=== PATIENT | female | born 1990 | race Caucasian/White ===

== ENCOUNTER 2018-04-15 15:58 | Emergency (ER) | payer OTHER ==
[2018-04-15] MEDS: ACETAMINOPHEN 325 MG TAB PO (16:45)
== END 2018-04-15 16:56 | disposition home or self-care (01) ==
LOC: FTE 15:58
DX: O99.89 Other specified diseases and conditions complicating pregnancy, childbirth and the puerperium (principal); M62.830 Muscle spasm of back; Z3A.28 28 weeks gestation of pregnancy
CPT/HCPCS: 99282; Z7502

== ENCOUNTER 2018-04-19 21:41 | Emergency (ER) | payer OTHER ==
[2018-04-20] MEDS ORDERED: ACETAMINOPHEN 325 MG TAB PO
== END 2018-04-20 01:33 | disposition home or self-care (01) ==
LOC: FTE 21:41
DX: O99.89 Other specified diseases and conditions complicating pregnancy, childbirth and the puerperium (principal); R07.89 Other chest pain; R40.2412 Glasgow coma scale score 13-15, at arrival to emergency department; Z3A.29 29 weeks gestation of pregnancy
CPT/HCPCS: 99282; Z7502

== ENCOUNTER 2018-06-28 08:12 | Inpatient (IN) | payer OTHER ==
[2018-06-28] MEDS ORDERED: MISOPROSTOL 200 MCG TAB PR ×2 (08:30→15:30)
[2018-06-28] MEDS ORDERED: METHYLERGONOVINE 0.2 MG INJ IM ×2 (08:30→15:30)
[2018-06-28] MEDS ORDERED: LIDOCAINE 1% (MPF) 30 ML INJ INJ (08:30)
[2018-06-28] MEDS ORDERED: CARBOPROST 250 MCG INJ IM ×2 (08:30→15:30)
[2018-06-28] MEDS ORDERED: BUTORPHANOL 1 MG INJ IV (08:30)
[2018-06-28] MEDS ORDERED: MISOPROSTOL 50 MCG CAPSULE VAG (08:30)
[2018-06-28] MEDS ORDERED: OXYTOCIN 30 UNITS/LR 500 ML IV ×5 (08:30→15:30)
[2018-06-28 08:56] LABS: ADD MAN DIFF? NO
[2018-06-28 09:01] LABS: WHITE BLOOD COUNT 7.6 10^3/ul (4.8-10.8)
[2018-06-28 09:01] LABS: BASOPHILS % 0.4 % (0.0-2.0); EOSINOPHILS # 0.1 10^3/ul (0.0-0.5); EOSINOPHILS % 0.7 % (0.0-7.0); HEMATOCRIT 38.2 % (37.0-47.0); HEMOGLOBIN 12.3 g/dl (12.0-16.0); LYMPHOCYTES # 1.2 10^3/ul (0.8-2.9); LYMPHOCYTES % 16.2 % (15.0-51.0); MEAN CORPUSCULAR HEMOGLOBIN 27.3 pg (29.0-33.0); MEAN CORPUSCULAR HGB CONC 32.2 g/dl (32.0-37.0); MEAN CORPUSCULAR VOLUME 84.7 fl (82.0-101.0); MEAN PLATELET VOLUME 12.3 fl (7.4-10.4); MONOCYTE # 0.7 10^3/ul (0.3-0.9); MONOCYTES % 9.6 % (0.0-11.0); NEUTROPHIL # 5.5 10^3/ul (1.6-7.5); NEUTROPHILS % 72.4 % (39.0-77.0); PLATELET COUNT 196 10^3/UL (140-415); RED BLOOD COUNT 4.51 10^6/ul (4.20-5.40); RED CELL DISTRIBUTION WIDTH 16.5 % (11.5-14.5)
[2018-06-28 09:20] LABS: INR 0.93; PROTIME 12.5 Sec (11.9-14.9)
[2018-06-28 09:21] LABS: PARTIAL THROMBOPLASTIN TIME 28.4 Sec (23.0-35.0)
[2018-06-28] MEDS: LACTATED RINGER'S 1,000 ML IV (09:22)
[2018-06-28] MEDS: AMPICILLIN 2 GM/NS (PMX) 100 ML IVPB (09:23)
[2018-06-28 09:54] LABS: HEPATITIS B SURFACE ANTIGEN NEGATIVE (NEGATIVE)
[2018-06-28] MEDS: AMPICILLIN 1 GM/NS (PMX) 50 ML IVPB (13:04)
[2018-06-28] MEDS: OXYTOCIN 30 UNITS/LR 500 ML IV (13:18)
[2018-06-28] MEDS ORDERED: MINERAL OIL LIGHT 10 ML VIAL (14:32)
[2018-06-28] MEDS: IBUPROFEN 600 MG TAB PO ×2 (15:16→19:11)
[2018-06-28] MEDS: ACETAMINOPHEN 1000MG/100ML IV 100 ML IVPB (15:28)
[2018-06-28] MEDS ORDERED: HYDROCODONE/APAP (5/325) TAB PO (15:30)
[2018-06-28] MEDS ORDERED: ZOLPIDEM 5 MG TAB PO (15:30)
[2018-06-28] MEDS ORDERED: DIBUCAINE 1% 30 GM OINT TOP (15:30)
[2018-06-28 21:09] LABS: RAPID PLASMA REAGIN NONREACTIVE (NR)
[2018-06-28] MEDS: SENNA/DOCUSATE NA (8.6MG/50MG) TAB PO (21:57)
[2018-06-28] MEDS: MAGNESIUM HYDROXIDE 30ML CUP PO (21:58)
[2018-06-28] MEDS: LACTATED RINGER'S 1,000 ML IV* (22:03)
[2018-06-28] MEDS: BENZOCAINE 20% 56 ML SPRAY TOP (22:10)
[2018-06-28] MEDS: LANOLIN HPA 1 PKT TOP (22:11)
[2018-06-28] MEDS: WITCH HAZEL/GLYCERIN PAD PR (22:11)
[2018-06-29] MEDS: IBUPROFEN 600 MG TAB PO ×5 (05:24→23:42)
[2018-06-29 07:26] LABS: ADD MAN DIFF? NO
[2018-06-29 07:32] LABS: WHITE BLOOD COUNT 10.2 10^3/ul (4.8-10.8)
[2018-06-29 07:32] LABS: BASOPHILS % 0.3 % (0.0-2.0); EOSINOPHILS # 0.1 10^3/ul (0.0-0.5); EOSINOPHILS % 0.5 % (0.0-7.0); HEMATOCRIT 31.5 % (37.0-47.0); HEMOGLOBIN 10.3 g/dl (12.0-16.0); LYMPHOCYTES # 1.4 10^3/ul (0.8-2.9); LYMPHOCYTES % 13.8 % (15.0-51.0); MEAN CORPUSCULAR HEMOGLOBIN 27.8 pg (29.0-33.0); MEAN CORPUSCULAR HGB CONC 32.7 g/dl (32.0-37.0); MEAN CORPUSCULAR VOLUME 85.1 fl (82.0-101.0); MEAN PLATELET VOLUME 12.4 fl (7.4-10.4); MONOCYTE # 1.2 10^3/ul (0.3-0.9); MONOCYTES % 11.3 % (0.0-11.0); NEUTROPHIL # 7.5 10^3/ul (1.6-7.5); NEUTROPHILS % 73.5 % (39.0-77.0); PLATELET COUNT 169 10^3/UL (140-415); RED CELL DISTRIBUTION WIDTH 16.8 % (11.5-14.5)
[2018-06-29] MEDS: MAGNESIUM HYDROXIDE 30ML CUP PO ×2 (12:07→21:29)
[2018-06-29] MEDS: SENNA/DOCUSATE NA (8.6MG/50MG) TAB PO ×2 (12:07→21:29)
[2018-06-29 17:08] LABS: HIV 1&2 ANTIBODY NEGATIVE (NEGATIVE)
[2018-06-29] MEDS: HYDROCODONE/APAP (5/325) TAB PO (21:30)
[2018-06-30] MEDS: IBUPROFEN 600 MG TAB PO ×2 (05:27→11:46)
[2018-06-30] MEDS: MEASLES,MUMPS,RUBELLA VACCINE INJ SC* (09:00)
[2018-06-30] MEDS: MAGNESIUM HYDROXIDE 30ML CUP PO (09:00)
[2018-06-30] MEDS: DIPHTH/TET/ACEL PERTUSS (ADULT) 0.5 ML VIAL IM* (09:00)
[2018-06-30] MEDS: VARICELLA VACCINE LIVE/PF 1,350 UNIT/0.5 ML ML SC* (09:00)
[2018-06-30] MEDS: SENNA/DOCUSATE NA (8.6MG/50MG) TAB PO (11:46)
== END 2018-06-30 18:57 | disposition home or self-care (01) | DRG 807 ==
LOC: OBT 08:12 → L-D 08:12 → OBT 08:18 → L-D 08:18 → PP1 17:07
PROVIDERS: Obstetrics & Gynecology
PROC: 10E0XZZ Delivery of Products of Conception, External Approach (ICD-10-PCS; principal; 2018-06-28)
DX: O80 Encounter for full-term uncomplicated delivery (principal); Z37.0 Single live birth; Z3A.39 39 weeks gestation of pregnancy
CPT/HCPCS: 85025; 85610; 85730; 86592; 86703; 86850; 86900; 86901; 87340